=== PATIENT | female | born 1940 | race Caucasian/White ===

== ENCOUNTER 2024-12-11 11:31 | Inpatient (IN) | payer MEDICARE, SELFPAY ==
[2024-12-11] VITALS (15 sets, daily range): BP systolic 143–213; BP diastolic 69–91; PULSE 62–75; RESP 17–30; TEMP 36.4–36.9; O2SAT 93–98; BMI 29.2
--- NOTE | 2024-12-11 12:23 | ED_ITS ---
HPI - Neuro Symptoms/Deficit General Chief Complaint: Neuro Symptoms/Deficit Stated Complaint: Per have friend patient might have had a stroke Time Seen by Provider: 12/11/24 12:13 History of Present Illness HPI Narrative: Patient here with her friends. Has had slurred speech facial droop and vision loss in the past couple of weeks. Patient has history of macular degeneration. She did see her sales assistants and salespersons today in the office, Dr. Reese, in [place], he did dilate her eyes and states her vision loss is not due to macular degeneration. Early this month she was seen at [facility] emergency department. No imaging was done. At that time she started having vision loss and generalized weakness. They are uncertain when she had changes in her speech and left facial droop/lip droop. Denies any headache. No prior history of high blood pressure. No chest pain no palpitations. No history of atrial fibrillation. No prior history of stroke On Anticoagulants: No Related Data Previous Rx's Medication Instructions Recorded aspirin 81 mg tablet,delayed 81 mg PO DAILY #30 tabs 12/14/24 release atorvastatin 20 mg tablet 80 mg (4 x 20 mg) PO BEDTIME #30 12/14/24 tabs losartan 50 mg tablet 100 mg (2 x 50 mg) PO DAILY #30 12/14/24 tabs Allergies Allergy/AdvReac Type Severity Reaction Status Date / Time No Known Drug Allergies Allergy Verified 12/12/24 07:09 Review of Systems Review of Systems Narrative: GENERAL: Negative chills, fatigue, malaise, fever, sweats. HEENT: Negative sinus pain, ear pain, sore throat, positive vision changes RESPIRATORY: Negative dyspnea, cough CARDIOVASCULAR: Negative chest pain, palpitations GASTROINTESTINAL: Negative nausea, vomiting, abdominal pain : Negative dysuria, frequency, hematuria MUSCULOSKELETAL: Negative muscle or bony pain SKIN: Negative rash, skin lesions NEUROLOGIC: Negative headache, positive slurred speech positive facial droop positive weakness, negative numbness ROS Unobtainable: All systems reviewed & are unremarkable except as noted in HPI and below Hematologic/Lymphatic On Anticoagulants: No Patient History Medical History Hypertension Macular degeneration Social History household members: none Smoking Status: Former smoker Exam Narrative Exam Narrative: GENERAL: in no distress, not toxic not dyspneic HEAD: Normocephalic. EYES: Pupils equal round ENT: Mucous membranes moist. NECK: Trachea midline. CARDIOVASCULAR: Regular rate and rhythm RESPIRATORY: Clear to auscultation. Breath sounds equal bilaterally. No wheezes, rales, or rhonchi. GASTROINTESTINAL: Abdomen soft, non-tender EXTREMITIES: No gross deformities. BACK: No flank tenderness. NEURO: AOx4. Slightly slurred speech, there is left lip droop. Strong equal assistant laboratory director negative pronator drift. Elevate each leg equally. No drift. SKIN: Warm and dry PSYCH: Not anxious, is cooperative Initial Vital Signs Initial Vital Signs: Vital Signs Temperature 98.5 F 12/11/24 11:39 Pulse Rate 75 12/11/24 11:39 Respiratory Rate 20 12/11/24 11:39 Blood Pressure 158/76 H 12/11/24 11:39 Pulse Oximetry 95 12/11/24 11:39 Oxygen Delivery Method Room Air 12/11/24 11:39 Scores NIH Stroke Scale Level of Conciousness: Alert, keenly responsive Ask month/age: Answers both questions correctly. Open/close eyes, close hand: Performs both tasks correctly Best gaze horizontal: Normal Visual denny: No visual loss Facial palsy: Minor paralysis, flattened nasolabial fold, asymmetry on smiling Left arm drift: No drift for full 10 sec Right arm drift: No drift for full 10 sec Left leg drift: No drift for full 5 sec Right leg drift: No drift for full 5 sec Limb ataxia: Absent Sensory on face/arms/legs: Normal, no sensory loss Best language: Mild to moderate, slurs some words Dysarthria: Mild to mod,some slurring Extinction or inattention: No abnormality Total NIH Stroke scale score: 3 Course Orders Ordered: Discontinued Medications Aspirin (Aspirin 81 Mg Chew Tab) 324 mg PO NOW ONE Stop: 12/11/24 14:25 Last Admin: 12/11/24 14:45 Dose: 324 mg Documented By: KB Aspirin (Aspirin Ec 81 Mg Tablet) 81 mg PO DAILY [facility] Last Admin: 12/12/24 09:12 Dose: 81 mg Documented By: RW Aspirin (Aspirin Ec 81 Mg Tablet) 81 mg PO DAILY [facility] Last Admin: 12/14/24 09:00 Dose: 81 mg Documented By: Admin: 12/13/24 17:38 Dose: 81 mg Documented By: CÉSAR Atorvastatin Calcium (Atorvastatin 20 Mg Tablet) 80 mg PO BEDTIME [facility] Last Admin: 12/13/24 20:08 Dose: 80 mg Documented By: Admin: 12/12/24 20:46 Dose: 80 mg Documented By: Admin: 12/11/24 21:36 Dose: 80 mg Documented By: AM Clopidogrel Bisulfate (Clopidogrel 75 Mg Tablet) 75 mg PO NOW ONE Stop: 12/11/24 14:25 Last Admin: 12/11/24 14:50 Dose: 75 mg Documented By: ELMIRA Clopidogrel Bisulfate (Clopidogrel 75 Mg Tablet) 75 mg PO DAILY [facility] Last Admin: 12/12/24 09:10 Dose: 75 mg Documented By: AKOSUA Sodium Chloride (Normal Saline 0.9%) 500 mls @ 1,000 mls/hr IV BOLUS ONE Stop: 12/11/24 13:03 Last Infusion: 12/11/24 13:59 Dose: Infused Documented By: ELMIRA(2) Admin: 12/11/24 13:06 Dose: 1,000 mls/hr Documented By: ELMIRA Influenza Virus Vaccine (Influenza Hd Vaccine 0.5 Ml Syringe) 0.5 ml IM .ONCE ONE Stop: 12/12/24 20:01 Last Admin: 12/12/24 23:24 Dose: Not Given Documented By: ALVARADO Influenza Virus Vaccine (Influenza Hd Vaccine 0.5 Ml Syringe) 0.5 ml IM .ONCE ONE Stop: 12/13/24 09:01 Last Admin: 12/13/24 09:03 Dose: 0.5 ml Documented By: CÉSAR Lorazepam (Lorazepam 2 Mg/Ml Inj) 0.5 mg IV Q4HR PRN PRN Reason: Anxiety Last Admin: 12/12/24 09:48 Dose: 0.5 mg Documented By: AKOSUA Losartan Potassium (Losartan 50 Mg Tablet) 100 mg PO NOW ONE Stop: 12/11/24 14:25 Last Admin: 12/11/24 14:45 Dose: 100 mg Documented By: ELMIRA Losartan Potassium (Losartan 50 Mg Tablet) 100 mg PO DAILY [facility] Last Admin: 12/14/24 08:49 Dose: 100 mg Documented By: Admin: 12/13/24 09:03 Dose: 100 mg Documented By: Admin: 12/12/24 09:11 Dose: 100 mg Documented By: AKOSUA Meloxicam (Meloxicam 7.5 Mg Tablet) 7.5 mg PO DAILY PRN PRN Reason: Pain, Mild (1-3) Naloxone HCl (Naloxone 0.4 Mg/Ml Vial) 0.2 mg IV Q2MIN PRN PRN Reason: Opiate Reversal Stored In Pharmacy 0 each PO PRN PRN PRN Reason: . Vital Signs Vital signs: Vital Signs - 8 hr 12/11/24 11:39 12/11/24 11:59 12/11/24 12:00 Temperature 98.5 F Pulse Rate 75 72 Respiratory Rate 20 20 Blood Pressure 158/76 H 179/76 H Pulse Oximetry 95 94 Oxygen Delivery Method Room Air 12/11/24 12:00 12/11/24 12:30 12/11/24 12:30 Temperature Pulse Rate 71 69 Respiratory Rate 23 26 H Blood Pressure 189/85 H Pulse Oximetry 93 95 Oxygen Delivery Method 12/11/24 12:52 12/11/24 12:52 12/11/24 13:00 Temperature Pulse Rate 71 Respiratory Rate 21 Blood Pressure 183/74 H 175/87 H Pulse Oximetry 95 Oxygen Delivery Method 12/11/24 13:00 Temperature Pulse Rate 66 Respiratory Rate 21 Blood Pressure Pulse Oximetry 96 Oxygen Delivery Method MDM - Neuro Symptoms/Deficit Lab Data 12/11/24 12:22 12/11/24 12:22 Labs: Lab Results 12/11/24 Range/Units 12:22 WBC 6.2 (4.5-11.0) X10^3/uL RBC 4.06 (4.0-5.2) X10^6/uL Hgb 12.7 (12.0-16.0) g/dL Hct 36.8 (36-46) % MCV 90.4 (80-100) fL MCH 31.3 (26-34) PG MCHC 34.6 (30-36) % RDW 13.2 (11.6-14.8) % Plt Count 267 (150-400) X10^3/uL Neut % (Auto) 63.2 (50-75) % Lymph % (Auto) 23.8 L (25-40) % [place] % (Auto) 12.4 (3-14) % Eos % (Auto) 0.1 L (2-4) % Baso % (Auto) 0.5 (0-2) % Neut # (Auto) 3900 (4328-2931) /uL Lymph # (Auto) 1500 (6213-0274) /uL [place] # (Auto) 800 (0-900) /uL Eos # (Auto) 0 (0-450) /uL Baso # (Auto) 0 (0-100) /uL PT 13.6 H (9.4-12.5) SECONDS INR 1.2 (0.9-1.3) APTT 35 (25.1-36.5) SECONDS Sodium 138 (137-145) mmol/L Potassium 4.0 (3.4-5.1) mmol/L Chloride 106 (98-107) mmol/L Carbon Dioxide 22 (22-32) mmol/L BUN 23 H (7-17) mg/dL Creatinine 1.05 H (0.52-1.04) mg/dL Estimated GFR 52 L (>60) mL/min BUN/Creatinine Ratio 21.9 (6-22) Glucose 109 (80-110) mg/dL Calcium 9.7 (8.4-10.2) mg/dL Total Bilirubin 1.1 (0.2-1.3) mg/dL AST 38 H (14-36) IU/L ALT 25 (<35) IU/L Alkaline Phosphatase 88 (38-126) U/L Total Protein 7.5 (6.3-8.2) g/dL Albumin 4.3 (3.5-5.0) g/dL Globulin 3.2 (1.7-4.1) g/dL Albumin/Globulin Ratio 1.3 (1.0-2.8) Triglycerides 82 (35-150) mg/dL Cholesterol 204 H (140-199) mg/dL LDL Cholesterol, Calc 147 H (<100) mg/dL HDL Cholesterol 41 (40-60) mg/dL [facility] Narrative Medical decision making narrative: Patient here with her friends. Has had slurred speech facial droop and vision loss in the past couple of weeks. Patient has history of macular degeneration. She did see her sales assistants and salespersons today in the office, Dr. Reese, in [place], he did dilate her eyes and states her vision loss is not due to macular degeneration. Early this month she was seen at [facility] emergency department. No imaging was done. At that time she started having vision loss and generalized weakness. They are uncertain when she had changes in her speech and left facial droop/lip droop. Denies any headache. No prior history of high blood pressure. No chest pain no palpitations. No history of atrial fibrillation. No prior history of stroke After history and exam CBC CMP CT head CT angiogram head and neck normal saline EKG [facility] Medical records reviewed: No recent visit here for this complaint Differential considered: Includes but not limited to TIA stroke aneurysm Sepulveda's palsy Lab Test results independently reviewed as above. Pertinent findings: Independently reviewed EKG sinus rhythm rate [address] elevation or depression Imaging studies independently reviewed: Consultations: 2:25 p.m.. Spoke with hospitalist, Dr. Hay, who will admit patient for stroke. Start aspirin Plavix and losartan Treatments: Aspirin Plavix losartan normal saline Re-evaluations: 2:30 p.m.. Updated patient and friends results av stroke on CT imaging. They do agree for admission for balance workup for stroke Discussion: Appropriate for admission for balance workup for stroke. Needs MRI and echocardiogram. Aspirin Plavix and losartan have been started. Patient outside of the window for any thrombolytics or endovascular studies. Stroke likely occurred earlier this month. Diagnosis: Stroke Discharge Plan Departure Patient Disposition: Admitted as Observation Clinical Impression: Cerebrovascular accident Qualifiers: CVA mechanism: unspecified Qualified Code(s): I63.9 - Cerebral infarction, unspecified Admit Date/Time: 12/11/24 14:24 Admit Provider: Sonia Hay
--- NOTE | 2024-12-11 12:33 | DI.CT.S_ITS ---
PROCEDURE: CT ANGIO HEAD AND NECK INDICATIONS: Slurred speech facial droop TECHNIQUE: After the administration of intravenous contrast, 1 mm thick sections acquired from the aortic arch through the [place] of [place]. 3-dimensional tyvduec-vypeysafw-kkmdriudgg (MIP) and/or volume rendering reformats were acquired of the central intracranial vasculature and neck separately. For radiation dose reduction, the following was used: automated exposure control, adjustment of mA and/or kV according to patient size. COMPARISON: None. FINDINGS: Image quality: Diagnostic. BRAIN: CSF spaces: Ventricles are normal in size and shape. Basal cisterns are patent. No extra-axial fluid collections. Brain: No significant abnormality of the brain can be seen. No area of abnormal intracranial enhancement is seen. Skull and face: Calvarium and facial bones appear intact, without suspicious lesions. Orbits appear normal. Sinuses: Sinuses and mastoids are clear. HEAD CT ANGIOGRAPHY: Anterior circulation: Intracranial internal carotid arteries are normal in size and flow. The flow within the paired anterior cerebral arteries is normal and symmetric. The flow within the middle cerebral arteries is normal and symmetric. The anterior communicating artery is seen. No aneurysms are seen. Posterior circulation: Visualized portions of the vertebral arteries demonstrate normal caliber, and join to form a normal appearing basilar artery. Flow within the posterior cerebral arteries is normal and symmetric. No aneurysms are seen. NECK CT ANGIOGRAPHY: Carotid system: The great vessels demonstrate a conventional anatomy as they arise from the aortic arch. The origins of the common carotid arteries appear patent. The common carotid arteries demonstrate normal caliber and courses. The bifurcation regions are both widely patent. The internal carotid arteries demonstrate normal calibers and courses. Posterior circulation: The origins of the vertebral arteries both appear widely patent. The more superior extracranial portions of both vertebral arteries also demonstrate normal courses and calibers. They join to form a normal appearing basilar artery. Soft tissues: Visualized neck soft tissues demonstrate no suspicious abnormalities. Bones: No suspicious bony lesions. Visualized cervical spine appears normally aligned. IMPRESSION: 1. No significant intracranial arterial abnormality is seen. 2. No significant abnormality is seen within the arteries of the neck. 3. No area of abnormal intracranial enhancement. Any quantitative measurements of stenosis were performed using NASCET criteria. Dictated by: Emanuel Brown M.D. on 12/11/2024 at 13:18 Approved by: Emanuel Brown M.D. on 12/11/2024 at 13:21
--- NOTE | 2024-12-11 12:33 | EKG_ITS ---
[place] [id number] [place] [id number] Test Date: 2024-12-11 Pat Name: Cheli Cook Department: [facility] Room: Gender: Female Director Of Professional Services: NISHANT : 1940 Requested By: Order Number: [id number] Reading MD: Kyle Hay Measurements Intervals [place] Rate: 69 P: 81 IL: 218 QRS: -14 QRSD: 90 T: 0 QT: 404 QTc: 432 Interpretive Statements Sinus rhythm with 1st degree AV block Minimal voltage criteria for LVH, may be normal variant ( R in aVL ) Electronically Signed On 12-11-2024 15:31:28 PST by Kyle Hay
--- NOTE | 2024-12-11 12:33 | DI.CT.S_ITS ---
PROCEDURE: CT HEAD/BRAIN WO CON INDICATIONS: Slurred speech facial droop TECHNIQUE: Noncontrast 4.5 mm thick angled axial sections acquired from the foramen magnum to the vertex, with coronal and sagittal reformats. For radiation dose reduction, the following was used: automated exposure control, adjustment of mA and/or kV according to patient size. COMPARISON: None. FINDINGS: Image quality: Diagnostic. CSF spaces: Basal cisterns are patent. No extra-axial fluid collections. The ventricles are symmetric in size and shape. Brain: No intracranial bleeds or masses. Moderate-sized hypodense area involving right parietal lobe is seen suggestive of age indeterminate infarction. There is cerebral volume loss for age, with resultant ventricular and sulcal prominence. There are periventricular and deep white matter chronic small vessel ischemic changes. There is intracranial internal carotid artery atherosclerosis. Skull and face: Calvarium and visualized facial bones appear intact, without suspicious lesions. Sinuses: Visualized sinuses and mastoids are clear. IMPRESSION: 1. Age indeterminate moderate size right parietal lobe infarction. No acute intracranial bleed. No significant midline shift or mass effect. 2. Age related volume loss and moderate white matter small vessel chronic ischemic changes. Dictated by: Emanuel Brown M.D. on 12/11/2024 at 13:15 Approved by: Emanuel Brown M.D. on 12/11/2024 at 13:17
[2024-12-11 12:46] LABS: Add Manual Diff / Slide Review NO; Basophils Absolute Auto 0 /uL (0-100); Basophils Percent Auto 0.5 % (0-2); Eosinophils Absolute Auto 0 /uL (0-450); Eosinophils Percent Auto 0.1 % (2-4); Hematocrit 36.8 % (36-46); Hemoglobin 12.7 g/dL (12.0-16.0); INR 1.2 (0.9-1.3); Lymphocytes Absolute Auto 1500 /uL (1100-4500); Lymphocytes Percent Auto 23.8 % (25-40); Mean Corpuscular HGB Conc 34.6 % (30-36); Mean Corpuscular Hemoglobin 31.3 PG (26-34); Mean Corpuscular Volume 90.4 fL (80-100); Monocytes Absolute Auto 800 /uL (0-900); Monocytes Percent Auto 12.4 % (3-14); Neutrophils Absolute Auto 3900 /uL (1500-7000); Neutrophils Percent Auto 63.2 % (50-75); Platelet Count 267 X10^3/uL (150-400); Prothrombin Time 13.6 SECONDS (9.4-12.5); Red Blood Cell Count 4.06 X10^6/uL (4.0-5.2); Red Cell Distribution Width 13.2 % (11.6-14.8); White Blood Cell Count 6.2 X10^3/uL (4.5-11.0)
[2024-12-11 12:49] LABS: PTT Partial Thromboplastin Tim 35 SECONDS (25.1-36.5)
[2024-12-11 12:51] LABS: Alanine Aminotransferase 25 IU/L (<35); Albumin 4.3 g/dL (3.5-5.0); Albumin Globulin Ratio 1.3 (1.0-2.8); Alkaline Phosphatase 88 U/L (38-126); Aspartate Aminotransferase 38 IU/L (14-36); BUN Creatinine Ratio 21.9 (6-22); Bilirubin Total 1.1 mg/dL (0.2-1.3); Blood Urea Nitrogen 23 mg/dL (7-17); Calcium 9.7 mg/dL (8.4-10.2); Carbon Dioxide 22 mmol/L (22-32); Chloride 106 mmol/L (98-107); Estimated Glomerular Filt Rate 52 mL/min (>60); Globulin 3.2 g/dL (1.7-4.1); Glucose 109 mg/dL (80-110); HEMOLYSIS < 15 (0-50); Sodium 138 mmol/L (137-145); Total Protein 7.5 g/dL (6.3-8.2)
[2024-12-11] MEDS: SODIUM CHLORIDE 0.9% 500 ML 1000 ML IV (13:06)
--- NOTE | 2024-12-11 13:24 | PC.NURSE ---
Stroke 11/25/2024, left sided weakness, left sided facial droop when smiling. AOx4. Pt has been living at home alone and performing ADLs with assistance from friends. Pt taking food/drink PO without issue.
[2024-12-11] MEDS: ASPIRIN 81 MG CHEW TAB 324 MG PO (14:45)
[2024-12-11] MEDS: LOSARTAN 50 MG TABLET 100 MG PO (14:45)
[2024-12-11] MEDS: CLOPIDOGREL 75 MG TABLET PO (14:50)
--- NOTE | 2024-12-11 17:55 | P.HP_ITS ---
History of Present Illness History of Present Illness Date Patient Seen: 12/11/24 Time Patient Seen: 17:55 Chief complaint: Per have friend patient might have had a stroke Narrative: This is an 84-year-old female with a history of macular degeneration, osteoarthritis and hypertension who presents with a subacute right parietal CVA. She says she has been diffusely weak, having to hold on to furniture to walk in her house, for 1 month. She went to the emergency department in [place] earlier this month and says she had a workup without any imaging and was started on lisinopril 5 mg daily. She has apparently not been treated for hypertension before that? Her PCP had retired and she has not yet established but is planning to see Kay Reese PA-C in December. Her friends noted that she had slurred speech, left arm weakness and drooping of the left face so when her retina specialist saw her today for a planned injection she was referred instead to the ED due to high blood pressure and these changes. On exam her speech is clear and her facial asymmetry is very subtle. Left hand function appears to be normal. Most profound is her left visual field loss to 90? and significant tunnel vision on the right side. She appears to have some left abida-neglect. The CT scan will be followed up with an MRI. She will receive an echocardiogram. She will be started on aspirin and Plavix. The CMP and CBC are normal. [facility] Medical History (Updated 12/11/24 @ 18:03 by Sonia Hay MD) Hypertension Macular degeneration Social History household members: none Smoking Status: Former smoker Meds Home Medications and Allergies Home Medications Medication Instructions Recorded Confirmed Type lisinopril 5 mg tablet 5 mg PO DAILY 12/11/24 12/11/24 History meloxicam 7.5 mg tablet 7.5 mg PO BID 12/11/24 12/11/24 History Review of Systems Review of Systems Narrative: Positive for generalized weakness, visual loss and poor balance. Negative for fevers, chills, sweats, nausea, vomiting, chest pain, abdominal pain, coughing, bleeding, rashes, dysuria, sore throat, headaches, new allergies. Exam Vital Signs (past 8 hours): - 12/11/24 11:39 12/11/24 11:59 12/11/24 12:00 Temperature 98.5 F Pulse Rate 75 72 Respiratory Rate 20 20 Blood Pressure 158/76 H 179/76 H Pulse Oximetry 95 94 Oxygen Delivery Method Room Air 12/11/24 12:00 12/11/24 12:30 12/11/24 12:30 Temperature Pulse Rate 71 69 Respiratory Rate 23 26 H Blood Pressure 189/85 H Pulse Oximetry 93 95 Oxygen Delivery Method 12/11/24 12:52 12/11/24 12:52 12/11/24 13:00 Temperature Pulse Rate 71 Respiratory Rate 21 Blood Pressure 183/74 H 175/87 H Pulse Oximetry 95 Oxygen Delivery Method 12/11/24 13:00 12/11/24 13:30 12/11/24 13:30 Temperature Pulse Rate 66 62 Respiratory Rate 21 24 Blood Pressure 188/79 H Pulse Oximetry 96 97 Oxygen Delivery Method 12/11/24 14:00 12/11/24 14:00 12/11/24 14:30 Temperature Pulse Rate 66 66 Respiratory Rate 17 21 Blood Pressure 198/89 H Pulse Oximetry 98 98 Oxygen Delivery Method 12/11/24 14:45 12/11/24 14:47 12/11/24 14:47 Temperature Pulse Rate 66 68 Respiratory Rate 30 H Blood Pressure 209/91 H 213/88 H Pulse Oximetry 96 Oxygen Delivery Method 12/11/24 14:49 12/11/24 14:49 12/11/24 15:00 Temperature Pulse Rate 67 69 Respiratory Rate 18 22 Blood Pressure 209/91 H Pulse Oximetry 96 96 Oxygen Delivery Method 12/11/24 16:56 Temperature 97.6 F Pulse Rate 73 Respiratory Rate 18 Blood Pressure 192/90 H Pulse Oximetry 98 Oxygen Delivery Method Oxygen Delivery Method Room Air Narrative Exam Narrative: She is alert and oriented x3. No apparent distress. She is unaware of her left-sided neglect. Pupils are equally round and reactive to light and accommodation. Extraocular muscles are intact Sclerae are pink and nonicteric Throat looks normal Tongue is midline Subtle facial asymmetry that is somewhat inconsistent. No lymph nodes are felt head, neck, supraclavicular area There is no thyromegaly JVD is less than 6 cm No carotid bruits are heard Heart is regular rate and rhythm without murmur Lungs are clear to auscultation bilaterally Abdomen is soft, bowel sounds positive, nontender, no organomegaly Extremities have no ankle edema Neuro: Motor function is 4/5 symmetrically in all extremities. Gait and balance are not tested There is no tremor Cranial nerves 2-12 test intact She has significant left-sided abida-neglect. Her left visual field cut is at 90?. Her right visual field cut is at about 45?. There is no dysmetria. Skin has no rash or jaundice Objective Imaging CT scan - head: Radiologist's impression: PROCEDURE: CT HEAD/BRAIN WO CON INDICATIONS: Slurred speech facial droop TECHNIQUE: Noncontrast 4.5 mm thick angled axial sections acquired from the foramen magnum to the vertex, with coronal and sagittal reformats. For radiation dose reduction, the following was used: automated exposure control, adjustment of mA and/or kV according to patient size. COMPARISON: None. FINDINGS: Image quality: Diagnostic. CSF spaces: Basal cisterns are patent. No extra-axial fluid collections. The ventricles are symmetric in size and shape. Brain: No intracranial bleeds or masses. Moderate-sized hypodense area involving right parietal lobe is seen suggestive of age indeterminate infarction. There is cerebral volume loss for age, with resultant ventricular and sulcal prominence. There are periventricular and deep white matter chronic small vessel ischemic changes. There is intracranial internal carotid artery atherosclerosis. Skull and face: Calvarium and visualized facial bones appear intact, without suspicious lesions. Sinuses: Visualized sinuses and mastoids are clear. IMPRESSION: 1. Age indeterminate moderate size right parietal lobe infarction. No acute intracranial bleed. No significant midline shift or mass effect. 2. Age related volume loss and moderate white matter small vessel chronic ischemic changes. Dictated by: Emanuel Brown M.D. on 12/11/2024 at 13:15 Labs 12/11/24 12:22 12/11/24 12:22 Labs: Laboratory Results - last 24 hr 12/11/24 12:22 WBC 6.2 RBC 4.06 Hgb 12.7 Hct 36.8 MCV 90.4 MCH 31.3 MCHC 34.6 RDW 13.2 Plt Count 267 Neut % (Auto) 63.2 Lymph % (Auto) 23.8 L [place] % (Auto) 12.4 Eos % (Auto) 0.1 L Baso % (Auto) 0.5 Neut # (Auto) 3900 Lymph # (Auto) 1500 [place] # (Auto) 800 Eos # (Auto) 0 Baso # (Auto) 0 PT 13.6 H INR 1.2 APTT 35 Sodium 138 Potassium 4.0 Chloride 106 Carbon Dioxide 22 BUN 23 H Creatinine 1.05 H Estimated GFR 52 L BUN/Creatinine Ratio 21.9 Glucose 109 Calcium 9.7 Total Bilirubin 1.1 AST 38 H ALT 25 Alkaline Phosphatase 88 Total Protein 7.5 Albumin 4.3 Globulin 3.2 Albumin/Globulin Ratio 1.3 Assessment & Plan Assessment & Plan narrative: This is an 84-year-old female with a history of macular degeneration, osteoarthritis and hypertension who presents with a subacute right parietal CVA. She says she has been diffusely weak, having to hold on to furniture to walk in her house, for 1 month. Subacute right parietal CVA, present on admission -likely ischemic related to hypertension -check echocardiogram. No carotid disease seen on CTA. -check brain MRI -begin aspirin daily and take Plavix for 21 days. -high-dose statin-Lipitor -losartan for blood pressure control -physical therapy, occupational therapy evaluations and consideration of appropriate rehab occasion. -she is quite functional so could be a candidate for inpatient rehab if she has the endurance to do 3 hours a day of therapy. -the left visual field loss/mild abida-neglect is likely to be a significant rehab barrier for her to overcome. Hypertension -subacute strokes are no need for permissive hypertension -losartan and add as needed. Osteoarthritis -meloxicam as needed. DVT prevention-SCD Time-Based Coding :: [TOTAL MINUTES] spent with patient and on the chart (including review of chart, obtaining history, exam, reviewing outside data, placing orders, documenting exam and treatment plan, and counseling patient) on [DATE].
--- NOTE | 2024-12-11 18:00 | DI.ECHO.S_ITS ---
[place] : : [address] : : [place] : : [id number] : : Phone: [phone] Echocardiogram Report + + :Name: MIGNON GARCIA Study Date: 12/12/2024 Height: 66 in : :[facility] ReadingLocation: Weight: 180 lb : : Gender: Female BSA: 1.9 m2 : :: 1940 Age: 84 yrs BP: 159/72 mmHg: :Reason For Study: CVA : :Ordering Physician: CYRUS, : :CHAVEZ Ervin Performed By: Adia Lopez : :Referring: CHAVEZ BRIDGES : + + Interpretation Summary 1) MIldly increased left ventricular thickness (concentric) with normal size, normal wall motion, and normal systolic function (EF 60-65%). 2) Normal right ventricular size and function. 3) No significant valvular abnormalities. 4) No prior Echo available for comparison. Procedure: A two-dimensional transthoracic echocardiogram with color flow and Doppler was performed. The study quality was technically adequate. There is no prior echocardiogram noted for this patient. The patient was in sinus rhythm with heart rates between 58-67 bpm during the exam. Left Ventricle: The left ventricle is normal in size. There is mild concentric left ventricular hypertrophy. The ejection fraction is estimated to be 60-65%. Left ventricular systolic function appears normal without focal wall motion abnormalities. Diastolic parameters suggest a relaxation abnormality of the left ventricle, consistent with probable normal filling pressures. Right Ventricle: The right ventricle is normal in size and function. Atria: The left atrial size is normal. Right atrial size is normal. There is no Doppler evidence for an interatrial shunt. Mitral Valve: The mitral valve leaflets appear to open well. There is trace mitral regurgitation. Aortic Valve: The aortic valve is not well visualized. The aortic valve is mildly calcified. There is no aortic valve stenosis. No aortic regurgitation is present. Tricuspid Valve: The tricuspid valve leaflets are thin and pliable. There is trace tricuspid regurgitation. Pulmonary artery pressures cannot be estimated because of the lack of a measurable TR jet velocity. Pulmonic Valve: The pulmonic valve is not well seen, but is grossly normal. There is no pulmonic valvular regurgitation. Great Vessels: The aortic root is normal size. The dimensions of the ascending aorta are normal. The IVC is dilated (diameter is greater than 2.1 cm) yet it collapses greater than 50% with a sniff. This suggests a right atrial pressure of 8 mm Hg. Pericardium/ Pleura There is no pericardial effusion. There is no pleural effusion. MMode/2D Measurements & Calculations LVIDd: 4.3 cm LVOT diam: 2.0 cm LVIDs: 2.7 cm Ao root diam: 3.0 cm FS: 37.0 % asc Aorta Diam: 3.2 cm IVSd: 1.2 cm Ao Arch Diam (Prox Trans): 2.8 cm LVPWd: 1.1 cm LV lux. diameter/BSA (cm/m^2): 2.2 LV sys. diameter/BSA (cm/m^2): 1.4 LA A2 area: 18.4 cm2 RA long axis: 4.3 cm LA A4 area: 15.1 cm2 RA area: 9.4 cm2 LA length (vol): 4.6 cm RA vol: 17.5 ml LA vol: 50.7 ml RA : 9.1 ml/m2 LA vol index: 26.5 ml/m2 IVC diam: 2.1 cm RVD1 (basal): 3.6 cm RVD2 (mid): 3.1 cm TAPSE: 1.8 cm Doppler Measurements & Calculations Ao V2 max: 145.2 cm/sec LVOT Max Sunny: 137.7 cm/sec Ao V2 mean: 110.9 cm/sec LV V1 max P.6 mmHg Ao max P.4 mmHg LV V1 VTI: 31.1 cm Ao mean P.2 mmHg GEOVANNA(I,D): 2.8 cm2 Ao V2 VTI: 35.0 cm GEOVANNA(V,D): 3.0 cm2 sev ratio: 0.89 GEOVANNA indexed to BSA (cm^2/m^2): 1.5 MV E max sunny: 82.6 cm/sec PA V2 max: 95.1 cm/sec MV A max sunny: 122.9 cm/sec PA V2 mean: 67.3 cm/sec MV E/A: 0.67 PA mean P.0 mmHg Med Peak E' Sunny: 5.4 cm/sec PA pr(Accel): 41.3 mmHg E/E' med: 15.4 Lat Peak E' Sunny: 5.0 cm/sec E/E' lat: 16.5 E/e' average: 16.0 MV dec time: 0.36 sec SV(LVOT): 97.4 ml Reading Physician:05:20 PM
[2024-12-11] MEDS: ATORVASTATIN 20 MG TABLET 80 MG PO (21:36)
[2024-12-12] VITALS (7 sets, daily range): BP systolic 157–196; BP diastolic 68–96; PULSE 60–77; RESP 15–18; TEMP 36.4–36.7; O2SAT 95–98
--- NOTE | 2024-12-12 07:46 | PM.PN.1 ---
Subjective Subjective Interval history: Admitted with a subacute parietal CVA. S: She still feels out of sorts and has a left-sided field cut. She denies a headache. No nausea. Her arms and legs are moving okay but she does have some apraxia. Exam Vital Signs (past 8 hours): - 12/12/24 00:00 12/12/24 04:00 Temperature 98 F 97.7 F Pulse Rate 60 65 Respiratory Rate 18 18 Blood Pressure 157/70 H 159/72 H Pulse Oximetry 95 96 Oxygen Flow Rate 0 0 Oxygen Delivery Method Room Air Oxygen Flow Rate 0 Narrative Exam Narrative: NAD, alert and oriented. Fluent speech. Lungs are clear, normal rate and effort. Heart is regular, no murmur gallop or rub. Abdomen is soft, non distended. Extremities are free of edema. Objective Imaging MRI - head: Radiologist's impression: 1. Relatively large subacute right MCA distribution infarct. There is dense infarct in the parietal lobe and less dense infarct in the temporal lobe and frontal lobe. There is associated early hemorrhagic transformation. There is mild mass effect without shift. 2. Underlying moderate to severe small vessel ischemic change. Labs 12/11/24 12:22 12/11/24 12:22 Labs: Laboratory Results - last 24 hr 12/11/24 12:22 WBC 6.2 RBC 4.06 Hgb 12.7 Hct 36.8 MCV 90.4 MCH 31.3 MCHC 34.6 RDW 13.2 Plt Count 267 Neut % (Auto) 63.2 Lymph % (Auto) 23.8 L [place] % (Auto) 12.4 Eos % (Auto) 0.1 L Baso % (Auto) 0.5 Neut # (Auto) 3900 Lymph # (Auto) 1500 [place] # (Auto) 800 Eos # (Auto) 0 Baso # (Auto) 0 PT 13.6 H INR 1.2 APTT 35 Sodium 138 Potassium 4.0 Chloride 106 Carbon Dioxide 22 BUN 23 H Creatinine 1.05 H Estimated GFR 52 L BUN/Creatinine Ratio 21.9 Glucose 109 Calcium 9.7 Total Bilirubin 1.1 AST 38 H ALT 25 Alkaline Phosphatase 88 Total Protein 7.5 Albumin 4.3 Globulin 3.2 Albumin/Globulin Ratio 1.3 PFSH Medical History Hypertension Macular degeneration Social History household members: none Smoking Status: Former smoker Assessment & Plan Assessment & Plan narrative: This is an 84-year-old female with a history of macular degeneration, osteoarthritis and hypertension who presents with a subacute right parietal CVA. She says she has been diffusely weak, having to hold on to furniture to walk in her house, for 1 month. 1. Subacute right parietal CVA, present on admission and active. -likely ischemic related to hypertension -check echocardiogram. No carotid disease seen on CTA. -check brain MRI -begin aspirin daily and take Plavix for 21 days. -high-dose statin-Lipitor -losartan for blood pressure control -physical therapy, occupational therapy evaluations and consideration of appropriate rehab occasion. -she is quite functional so could be a candidate for inpatient rehab if she has the endurance to do 3 hours a day of therapy. -the left visual field loss/mild abida-neglect is likely to be a significant rehab barrier for her to overcome. 2. Hypertension, present on admission and active. -subacute strokes are no need for permissive hypertension -losartan and add as needed. 3. Osteoarthritis, stable. Plan: -continue current therapy. -we will repeat CT scan on December 13 to reassess for evidence of bleeding or increased edema. -continue slow improvements of blood pressure control. -ongoing evaluations by PT and OT for discharge planning recommendations. DVT prevention-SCD Time-Based Coding :: [TOTAL MINUTES] spent with patient and on the chart (including review of chart, obtaining history, exam, reviewing outside data, placing orders, documenting exam and treatment plan, and counseling patient) on [DATE].
[2024-12-12] MEDS: CLOPIDOGREL 75 MG TABLET PO (09:10)
[2024-12-12] MEDS: LOSARTAN 50 MG TABLET 100 MG PO (09:11)
[2024-12-12] MEDS: ASPIRIN EC 81 MG TABLET PO (09:12)
--- NOTE | 2024-12-12 09:40 | PT-IP ANOTE ---
PT consult received. PT reviews chart and checks in on pt. Pt is tearful and reports worry about being in MRI machine. She expresses concern about her dog and not being able to take care of herself. PT provides encouragement about hospital plan and therapy consults and assisting with disposition plan and pt reports feeling better. PT speaks with nsg who is looking into possible medication for pt to help with tolerating MRI. Con't eval efforts later.
[2024-12-12] MEDS: LORazepam 2 MG/ML INJ 0.5 MG IV (09:48)
--- NOTE | 2024-12-12 11:48 | OT.IP.EVAL ---
Current Diagnoses Cerebral infarction, unspecified (12/11/24) Past Medical History (Last Reviewed 12/12/24 @ 07:47 by Morgan Palmer MD) Hypertension Macular degeneration Occupational Therapy Inpatient Evaluation/Re-Eval M1 PT/OT-IP Prior Functional Status Start: 12/12/24 08:10 Freq: NEEDED Status: Active Protocol: Document 12/12/24 12:53 [facility] (Rec: 12/12/24 13:12 [facility] [id number]) Medical Review Prior Functional Status Medical History Reviewed Yes Diet/Fluid Consistency Regular Communication Attempts to communicate all needs and pt is anxious and tearful this a.m. Mobility and Gait Pt reports 2 falls in the past 14-15 months and pt reports she has used cane, 3WRW and no AD Activities of Daily Living and IADL's Pt reports I and does not drive and has friends who assist with shopping and errands. She does state that she had a friend visiting when she was showering and had a fall and friend called EMS. Unsure if she typically has friends nearby when she showers or not. Pt has a dog that she cares for. Social History Household Members none Living Arrangements Mobile home Number of Floors (Floors) One Floor Number of Stairs To Enter/Railing? 3 steps and B rails to enter Home Environment High Toilet,Walk in Shower Home Equipment Quad Cane,Straight Cane,Grab Bars In Shower Employment Status Retired Additional Social History Comment Small outdoor table in shower to sit on, 3WRW M2 OT-IP Current Condition Start: 12/12/24 12:53 Freq: Status: Active Protocol: Document 12/12/24 12:53 [facility] (Rec: 12/12/24 13:12 [facility] [id number]) Occupational Therapy Current Condition Current Condition Evaluation Date 12/12/24 Treatment Diagnosis Large subacute R CVA Diagnosis Onset Date 12/11/24 M3 OT- IP Subjective and Pain Start: 12/12/24 12:53 Freq: Status: Active Protocol: Document 12/12/24 12:53 [facility] (Rec: 12/12/24 13:12 [facility] [id number]) OT- Subjective Occupational Therapy Visit Type Type Initial Evaluation Visit Start Time 11:05 Visit Stop Time 11:48 Occupational Therapy Visit Comments Patient Comments Pt agreed to get up. Patient/Caregiver Goals TO get better. OT Pain Assessment Pain When Pain Assessed At Rest Pain Present Pain Present Denied Pain M4 OT- IP ADL's Start: 12/12/24 12:53 Freq: Status: Active Protocol: Document 12/12/24 12:53 [facility] (Rec: 12/12/24 13:12 [facility] [id number]) OT [id number]-Zijf-Buyrxdw General Evaluation Self-Feeding Ability Moderate Assistance Comments OT Self-Feeding Comments Assist for set-up , cues to look left, and to clear her mouth as pt has left pocketing . Pt able to clear her mouth with her tongue and finger at times. OT ADL-Grooming Comments OT Grooming Comments Not performed. OT ADL-Oral Care Comments Oral Care Comments Not performed. OT ADL-Dressing General Eval Lower Body Dressing Ability Maximum Assistance Areas Needing Assistance Underpants/Brief,Socks Comments OT Dressing Comments Pt ataxic with LUE, decreased proprio and kinesthesia and needing assist to guide her left hand for dressing and toileting needs. OT ADL-Toileting General Evaluation Toileting Ability Moderate Assistance Areas Needing Assistance Manage Clothing Comments OT Toileting Comments Pt needing assist to guide her left hand in order be able to pull up her brief on the left side. OT ADL-Bathing Comments OT Bathing Comments Pt will need assist. M5 OT- IP IADL's Start: 12/12/24 12:53 Freq: Status: Active Protocol: Document 12/12/24 12:53 [facility] (Rec: 12/12/24 13:12 [facility] [id number]) OT-Instrumental Activities of Daily Living Home Safety Awareness Awareness of Need for Assistance at Home Good Awareness Home Safety Comments Pt is aware that she will not be able to care for her self at this time. Medication Management Medication Management Comments Prior pt able to do but may benefit from assist due to decreased vision from CVA and macular deg. Money Management Money Management Comments Prior pt able to do but may benefit from assist due to decreased vision from CVA and macular deg. Meal Preparation Meal Preparation Comments Prior pt able to do but may benefit from assist due to decreased vision from CVA and macular deg. Race Starter Race Starter Comments Prior pt able to do but may benefit from assist due to decreased vision from CVA and macular deg. Driving Driving Comments Pt aware that she will not be able to drive. M6 OT- IP Functional Cognition Start: 12/12/24 12:53 Freq: Status: Active Protocol: Document 12/12/24 12:53 [facility] (Rec: 12/12/24 13:12 [facility] [id number]) Cognitive Factors Limiting Selfcare Function Cognitive Ability Level of Alertness Alert Patient Orientation Name,Age,Birthday,Month,Date, Year,Day of Week,Place, Situation Attention Span Ability Capable of Focused Attention, Capable of Sustained Attention Ability to Follow Commands Able to Follow One Step Commands Cognitive Comments Cognitive Assessment Comments Pt able to follow commands, however needing cues for safety due to visual impairments on the left, neglect and for FWW use. Pt O x4 and motivated to get better. Pt would benefit from SLUMS. OT- Vision and Hearing OT- Vision Assessment Vision History Macular Degeneration Visual Acuity Glasses For Reading Visual Attentiveness WFL Occular Pursuits Impaired Horizontal Visual Richardson Impaired Visual Spacial Neglect Left Vision Assessment Comments Left eye decreased peripherally.Pt educated to turn her head to ashley left to be able to see. Pt eating food on the right side of the plate and needing assist to turn the plate to see and cues to turn her head so able to find the food on the left. M7 OT- IP Mobility and Balance Start: 12/12/24 12:53 Freq: Status: Active Protocol: Document 12/12/24 12:53 [facility] (Rec: 12/12/24 13:12 [facility] [id number]) OT-Transfer Assessment Sit to and From Stand Sit to and from Stand Minimal Assistance Transfers Transfer Ability Moderate Assistance Technique Transfer Destination Chair,Toilet Transfer Technique Stand Step Pivot Devices Transfer Assistive Devices Gait Belt,Front Wheeled Walker Comments Mobility Comments ALEXANDR to stand and assist to help place the left hand on the FWW. MODA for transfer assist with FWW guidance, safety cues due to decreased vision. OT- Balance Assessment Sitting Balance and Reactions Static Sitting Balance Ability Good Dynamic Sitting Balance Ability Fair Standing Balance and Reactions Static Standing Balance Ability Fair Dynamic Standing Balance Ability Fair M8 OT- IP Objective Assessments Start: 12/12/24 12:53 Freq: Status: Active Protocol: Document 12/12/24 12:53 [facility] (Rec: 12/12/24 13:12 [facility] [id number]) OT Gross Range of Motion Upper Extremity Range of Motion Assessment Within Functional Limits OT Strength Upper Extremity Strength Assessment Left Impaired Wrist 4- Hand 4- OT- Coordination Assessment Upper Extremity Finger to Nose Test Left UE Impaired Finger Tapping Test Left UE Impaired OT Sensation Assessment Comments Summary Comments Decreased for proprioception and kinesthesia. Pt ataxia with left arm and neglect as well. M9 OT- IP Assessment and Plan Start: 12/12/24 12:53 Freq: Status: Active Protocol: Document 12/12/24 12:53 [facility] (Rec: 12/12/24 13:12 [facility] [id number]) OT Summary Assessment and Plan Potential Rehabilitation Potential Good Analytic Complexity at Evaluation Moderate Summary OT Impairments Range of Motion,Strength, Balance,Coordination,Sensation ,Functional Mobility,Self- Feeding,Grooming,Dressing, Toileting,Bathing,Toilet Transfers,Shower Transfers, Activity Tolerance Progress Towards Goals Progressing Toward Goals,Slow Progress due to Medical Issues Assessment Summary Pt MOD complexity and main barriers are decreased vision on the left. Also having pocketing with food on the left but after cues aware to clear it out with her tongue or finger. Pt is very motivated to get better. Pt would benefit from acute rehab. Goals Self-Feeding Goal Independent Grooming Goal Independent Dressing Goal Independent Toileting Goal Independent Bathing Goal Standby Assistance Toilet Transfer Goal Independent Shower Transfer Goal Independent Days to Meet Goals 30 Frequency of Treatment Other frequency 5x/week Treatment Plan OT Treatment Plan ADL Training,Functional Mobility,Neuromuscular Re- education,Vision Retraining, Patient/Family Education, Discharge Planning Discharge Recommendations OT Discharge Recommendations Acute Rehab,SNF vs Acute Rehab Transportation Needs at Discharge Private Vehicle,Wheelchair/ Cabulance
--- NOTE | 2024-12-12 12:46 | PT.IIE ---
Current Diagnoses Cerebral infarction, unspecified (12/11/24) Medical History (Last Reviewed 12/12/24 @ 07:47 by Morgan Palmer MD) Hypertension Macular degeneration Physical Therapy Inpatient Evaluation/Re-Eval M1 PT/OT-IP Prior Functional Status Start: 12/12/24 08:10 Freq: NEEDED Status: Active Protocol: Document 12/12/24 11:01 [facility] (Rec: 12/12/24 12:46 [facility] [id number]) Medical Review Prior Functional Status Medical History Reviewed Yes Diet/Fluid Consistency Regular Communication Attempts to communicate all needs and pt is anxious and tearful this a.m. Mobility and Gait Pt reports 2 falls in the past 14-15 months and pt reports she has used cane, 3WRW and no AD Activities of Daily Living and IADL's Pt reports I and does not drive and has friends who assist with shopping and errands. She does state that she had a friend visiting when she was showering and had a fall and friend called EMS. Unsure if she typically has friends nearby when she showers or not Social History Household Members none Living Arrangements Mobile home Number of Floors (Floors) One Floor Number of Stairs To Enter/Railing? 3 steps and B rails to enter Home Environment High Toilet,Walk in Shower Home Equipment Quad Cane,Straight Cane,Grab Bars In Shower Employment Status Retired Additional Social History Comment Small outdoor table in shower to sit on, 3WRW M2 PT-IP Current Condition Start: 12/12/24 08:10 Freq: NEEDED Status: Active Protocol: Document 12/12/24 11:01 [facility] (Rec: 12/12/24 12:46 [facility] [id number]) Physical Therapy Current Condition Current Condition Evaluation Date 12/12/24 Treatment Diagnosis Large subacute R MCA infarct with some hemorrhagic extension M3 PT-IP Subjective Start: 12/12/24 08:10 Freq: NEEDED Status: Active Protocol: Document 12/12/24 11:01 [facility] (Rec: 12/12/24 12:46 [facility] [id number]) Subjective Physical Therapy Visit Type Type Initial Evaluation Visit Start Time 11:01 Visit Stop Time 11:37 Number of SCRAP DEALER Visits 0 Physical Therapy Visit Comments Patient Comments Pt is tearful and anxious this a.m. about stroke, concern about inability to care for herself and her dog. She was able to manage in the MRI machine. M4 PT-IP Mobility and Gait Start: 12/12/24 08:10 Freq: NEEDED Status: Active Protocol: Document 12/12/24 11:01 [facility] (Rec: 12/12/24 12:46 [facility] [id number]) PT-Transfer Assessment Sit to and From Stand Sit to and from Stand Minimal Assistance Equipment Transfer Assistive Device Gait Belt,Front Wheeled Walker Orthotic/Prosthetic Devices or Brace: No Transfers Transfer Destination Chair,Toilet Transfer Technique Ambulation Transfer Ability Level of Assist Minimal Assistance,1 Person Assistance,Use of Upper Extremities Comments Mobility Comments Pt with left sided inattentiveness and visual issues: runs into doorway on the left, step-to with left foot lag, trouble coordinating stepping, not eating food on the left side of her plate and trouble using left hand Gait Assessment Gait Gait Assistance Required: Moderate Assistance Distance (Feet) 10 Able to Maintain Weight Bearing Status Yes During Gait Assistive Devices Assistive Device Gait Belt,Front Wheeled Walker Orthotic/Prosthetic Devices or Brace: No Gait Deviations General Gait Pattern Decreased Stride Length, Decreased Feet Clearance, Flexed Trunk,Step-to Gait,Wide Based Gait Factors Limiting Gait Function Factors Limiting Gait Function Decreased Strength,Difficulty Following Directions, Incoordination,Poor Balance, Poor Safety Awareness Comments Gait Comments Visual field changes/low vision, especially to the left and left eye tests positive for scew deviation, trouble with other visual tests in setting of macular changes at baseline, has trouble following commands PT-Balance Assessment Sitting Balance and Reactions Static Sitting Balance Ability Good Dynamic Sitting Balance Ability Fair Standing Balance and Reactions Static Standing Balance Ability Fair Dynamic Standing Balance Ability Fair Device Used RW M5 PT-IP Objective Assessments Start: 12/12/24 08:10 Freq: NEEDED Status: Active Protocol: Document 12/12/24 11:01 [facility] (Rec: 12/12/24 12:46 [facility] [id number]) Orientation Orientation/Cognition Level of Alertness Alert Orientation Name,Birthday,Date,Place, Situation Safety Awareness Decreased Safety Awareness Memory Description No Deficits Noted Gross Range of Motion Upper Extremity ROM Impairments Defer to OT Lower Extremity ROM Assessment Left Impaired Impairments No great toe extension on the left and decrease ankle DF compared to right Strength Lower Extremity Strength Assessment Bilaterally Impaired Hip Hip flexion right 4/5; left 3/ 5 Knee Knee flexion right 4+/5, left 3+/5; extension right 4+/5, left 3+/5 Ankle DF right 4+/5, left 4/5, great toe ext right 4/5, left 0/5 Coordination Assessment Gross Coordination Gross Coordination Impaired Assessment Heel on Franco Test R min impaired, left mod impaired Sensation Assessment Comments Sensation Comments Trouble following sensory commands B and does appear worse on the left M6 PT-IP Treatment Start: 12/12/24 08:10 Freq: NEEDED Status: Active Protocol: Document 12/12/24 11:01 [facility] (Rec: 12/12/24 12:46 [facility] [id number]) Physical Therapy Treatment Education Education Provided Safety Other Treatments Other Treatment Performed Cues and assistance needed for all transfers and ADL in bathroom today, assistance with positioning briefs, hygiene and poor awareness and use of left hand and ability to negociate task on the left including walker use, raising and lowering hand and awareness of where it is on walker M7 PT-IP Assessment and Plan Start: 12/12/24 08:10 Freq: NEEDED Status: Active Protocol: Document 12/12/24 11:01 [facility] (Rec: 12/12/24 12:46 [facility] [id number]) PT Summary Assessment and Plan Potential Rehabilitation Potential Good Status of Condition at Evaluation Evolving Summary Impairments ROM,Strength,Balance, Coordination,Sensation, Cognition,Bed Mobility, Transfers,Gait,Activity Tolerance Progress Towards Goals Progressing Toward Goals Assessment Summary Pt is an 84 y/o female who reports she was I in her mobile home in [facility] and that she needed increased assistance recently and had a fall in the past week--it is unclear when the infarct occurred as it is subacute and she did go to outside hospital before adm to this hospital last date. Her friends assist with errands as she does not drive given history of macular degeneration and she has a small dog for whom she cares. Pt dx with large subacute MCA infarct with early hemorrhagic extension. Pt presents with visual challenges, worse to the left, poor use of left hand, running into objects to the left, not eating foot on left side of plate. Pt is concerned about her loss of independence and dog. Currently recommend acute rehab at d/c. Goals Bed Mobility Goal Independent Transfer Goal Standby Assistance,Four Wheeled Walker Gait Goal Standby Assistance,Four Wheel Walker Gait Distance 75 Other Goals Pt will ascend and descend 3 steps with 2 rails and no more than CGA to allow safe home entrance. Days to Meet Goals 10 Frequency of Treatment Frequency Of Treatment Once a Day Treatment Plan Physical Therapy Treatment Plan Bed Mobility Training,Transfer Training,Gait Training, Therapeutic Exercise,Balance Retraining,Discharge Planning, Hot or Cold Pack,Neuromuscular Re-ed,Coordination Retraining ,Manual Therapy Precautions Other Precautions Fall risk, poor vision and low attention to left side Recommendations To Nursing Amount of Assist Needed 2 Person Assist Discharge Recommendations PT Discharge Recommendations Acute Rehab Transportation Needs at Discharge Wheelchair/Cabulance
--- NOTE | 2024-12-12 15:54 | CM.DANOTE ---
Initial DCP Assessment Note Pt is a 84yo female, resident of [place], admitted after CVA- current rec from PT/OT/CEMENT FINISHING SUPERVISOR: Inpatient Rehab. Referral sent [facility] today by ALYCE Johnson. PCP: Unknown Payer: RUBÉN/GIANNI Reviewed chart. Met w/patient's friend and stiff straw hat washer outside of patient's room, with patient's permission. Patient getting an eval from CEMENT FINISHING SUPERVISOR. According to our conversation: Patient has no designated DPOA. Patient and daughter talk sporadically. Patient lives in a trailer, alone with dog Jase. Patient is mostly indp at baseline, has some mild cognitive impairment. Patient has macular degeneration according to friend which worries patient's friends re medication management. Friends visit regularly and suspected patient had a stroke days ago. Patient went to [facility] ER and was sent to Friend/stiff straw hat washer is a retired housing case management social worker and plans to see if she can help patient into [facility] program for in home care. Patient does not drive. Patient with slower processing, unsure if this is baseline or related to her stroke. Patient/supportive friends at bedside agreeable to initial referral to [facility]. CM team following closely for continued coordination efforts. ARIAN Potter Discharge Planning/Care Management CM Discharge Assessment Start: 12/12/24 15:51 Freq: Status: Active Protocol: Document 12/12/24 15:51 LAZARO (Rec: 12/12/24 15:54 LAZARO [id number]) Discharge Planning Assessment Assigned Presser [employer] ARIAN Kunz DPOA/Assigned Designee Name josee Thomson Contact Information [phone] Advance Directives? No History Provided By Friend,Medical Record Prior Living Arrangements Mobile home Comment mobile home park Household Members none Type of transporation used prior to Relies on Others admit Independent with ADL's Yes Is patient alert and oriented? No: Mild confusion per friend/ stiff straw hat washer Caregiver for Another Yes: Dog Jase Barriers to Discharge Yes Comment Below functional baseline. IPR Discharge Plan Inpatient Rehab Unit Transportation Arrangement Private auto vs cabulance Referrals Initiated Other Additional Comment IPR- [facility]
--- NOTE | 2024-12-12 16:10 | ST.IPIE ---
Visit Care Team Role Provider Type Chris Kirkland MD Emergency Provider Physician Referring Provider Specialty: Emergency Medicine Address: [address] [place] [address], [id number] Email: [email or web address] Admit Provider Physician Attending Provider Specialty: Medical Address: [address] [place] [address], [phone] Email: [email or web address] Current Diagnoses Cerebral infarction, unspecified (12/11/24) Past Medical History (Last Reviewed 12/12/24 @ 07:47 by Morgan Palmer MD) Hypertension (Medical) Macular degeneration (Medical) ST IP Initial Evaluation Report BREAST SURGEON Adult Cognitive Linguistic Eval Start: 12/12/24 15:48 Freq: Status: Active Protocol: Document 12/12/24 15:48 SS (Rec: 12/12/24 16:10 SS [id number]) Adult Cognitive Linguistic Evaluation Session Time Visit Start Time 13:25 Visit Stop Time 13:55 Total Visit Minutes 30 Visit Information Visit Number [address] Morgan Palmer Reason for Referral CVA Setting Assessment Location Acute Care Visit Type Note Type Initial evaluation Next Note Type Next Note Type Treatment Note Patient Information Identification Type Name,Date of Patient History Per H&P: This is an 84-year- old female with a history of macular degeneration, osteoarthritis and hypertension who presents with a subacute right parietal CVA . She says she has been diffusely weak, having to hold on to furniture to walk in her house, for 1 month. She went to the emergency department in [place] earlier this month and says she had a workup without any imaging and was started on lisinopril 5 mg daily. She has apparently not been treated for hypertension before that? Her PCP had retired and she has not yet established but is planning to see Kay Reese PA-C in December. Her friends noted that she had slurred speech, left arm weakness and drooping of the left face so when her retina specialist saw her today for a planned injection she was referred instead to the ED due to high blood pressure and these changes. On exam her speech is clear and her facial asymmetry is very subtle. Left hand function appears to be normal. Most profound is her left visual field loss to 90? and significant tunnel vision on the right side. She appears to have some left abida-neglect . The CT scan will be followed up with an MRI. She will receive an echocardiogram . She will be started on aspirin and Plavix. The CMP and CBC are normal. MRI on showed a large subacute right MCA distribution infarct, dense infarct in the parietal lobe and less dense infarct in the temporal lobe and frontal lobe, as well as underlying moderate to severe small vessel ischemic change. Pt was seen for cognitive- communication evaluation to assess current function. Occupation Status Retired Hearing Hearing Level Normal Vision Vision Status Impaired Comments Macular degeneration, new onset of left neglect Previous Therapy Previous Speech-Language Therapy No Subjective Patient Report Pt alert and oriented upon BREAST SURGEON arrival. Per pt, she previously lived alone, with occasional assistance from friends with ADLs and IADLs, though was mostly independent. She reports she has been having some difficulty completing ADLs and IADLs more recently, though attributes this to physical weakness and history of macular degeneration. She reports she has noted difficulty with word -finding and short-term memory s/p CVA. She does not seem to recognize the left neglect which reportedly significantly affects her safety and participation in ADLs (e.g., bumps into objects on the left side, leaves the left side of her place full of food, etc). No overt s/sx of dysphagia, aphasia, or dysarthria, which is consistent with pt and RN report. Mental Status Alert,Responsive,Cooperative Informal Assessment Receptive Language Normal Yes Expressive Language Normal Yes Pragmatic Language Normal Yes Speech Normal Yes Cognition Normal No Cognitive Impairment(s) Attention,Short-term memory, Executive functioning Formal Assessment Standardized Test/Screener Type [facility] Mental Status (UMS) Administration Complete Results The [facility] Mental Status (UMS) Examination was used to obtain information regarding the patient?s cognitive abilities. The SLUMS consists of ten questions that assess delayed recall, verbal fluency, comprehension, calculations, attention, working memory, and orientation. A scored is calculated from a possible 30 points. Scores fall in one of three ranges describing a patient?s level of impairment based upon level of education. Patients who have completed high school are expected to score slightly higher on this test than those who have not. For someone with a high school education, WNL is 27-30. The SLUMS was completed on this date. Subtest scores are as follows: Orientation: 3/3 Immediate Recall: 5/5 (not calculated in total score) Numeric Calculation: 1/3 Divergent Namin/3 (total of 12) Delayed Recall: 1/5 Attention/Registration with Digit Span: 2/2 Clock Drawing (Visuospatial & Executive Functioning): 0/4 ( impacted by left neglect. Pt placed numbers 1-6 twice on the right side of the clock face. She did not place the hands at all which is consistent with her left neglect) Geometric Figures: 2/2 Short Story (memory/recall): Pt received a score of 19/30 which is indicative of mild cognitive-communication impairment. Findings/Results Language Function Mildly impaired Cognitive Function Mild-moderately impaired Findings The pt demonstrates mild- moderate cognitive- communication impairment in the areas of attention, short- term memory, word-finding, and executive functioning. She also presents with visual left neglect. Pt is at an elevated risk of making critical errors with tasks such as medication management, time/ schedule management, financial operations analyst, and completion of rn oncology clinical, as well as everyday tasks that require adequate skills in the areas of attention and immediate/ delayed memory. Additionally, visual left neglect is likely to impact her ability to safely and accurately complete ADLs and IADLs. Skilled ST services with the goal of providing therapeutic education and training in the use of cognitive-communication compensatory strategies targeting attention, immediate and delayed memory, and visual left neglect for improved safety and independence at the next level of care are recommended. BREAST SURGEON educated pt on ST POC for improving cognitive- communication skills. Pt expressed comprehension of and is agreeable with proposed ST POC. Concomitant Factors Concomitant Factors Visual field neglect Prognosis Prognosis Good Based on Cognitive status,Family support,Duration of symptoms/ severity,Time since onset Plan of Care Speech-Language Treatment Yes Frequency Once a day Patient/Caregiver Education Patient expressed understanding of evaluation, Patient expressed agreement with goals and treatment plans Short Term Goals 1. Patient will utilize compensatory memory aids with 90% accuracy given verbal and visual cues to increase functional recall/ participation within current setting. 2. Patient will demonstrate an understanding of 2-3 techniques targeting visual left neglect through verbal teach-back/demonstration in a treatment session. Chcf Goals Patient will increase cognitive-communication skills to within functional limits using compensatory strategies as trained in order to facilitate safe return to prior level of living. Discharge Recommendations Inpatient rehab facility
--- NOTE | 2024-12-12 18:01 | DI.MRI.S_ITS ---
PROCEDURE: MR HEAD/BRAIN WO CON INDICATIONS: CVA TECHNIQUE: Non-contrast axial T1 spin echo, axial T2 fast spin echo, sagittal and axial FLAIR, coronal T2 fast spin echo, axial gradient echo, axial diffusion and ADC through the brain. COMPARISON: [facility], CT, CT ANGIO HEAD AND NECK, 12/11/2024, 12:40. [facility], CT, CT HEAD/BRAIN WO CON, 12/11/2024, 12:40. FINDINGS: Image quality: Excellent. CSF spaces: Ventricles appear symmetric in size and shape. Basal cisterns are patent. No extra-axial fluid collections. Brain: No intracranial bleeds or mass effects. There is cerebral volume loss for age. There is underlying bilateral moderate to severe small vessel ischemic change. There is a dense area subacute infarct involving the right parietal lobe, involving the deep white matter and cortex with cytotoxic edema and sulcal effacement. There is mild mass effect on the posterior horn the right lateral ventricle. More anteriorly, there is less dense infarct involving the right temporal lobe as well as predominantly cortical infarct involving the posterior and mid right frontal lobe. Findings are consistent with a relatively large area right MCA distribution infarct. Reference previous CT image 23 of series 4 and diffuse in weighted axial images 12, 15, and 18 as medical detail representative images. There is early petechial hemorrhagic transformation noted with intracellular and extracellular methemoglobin present. Reference axial T1 image 12 of series 8 for evidence of petechial hemorrhage. Normal intravascular flow voids are present. Skull and face: Calvarial bone marrow is normal in signal. Orbits are normal. Sinuses: Sinuses and mastoids are clear. IMPRESSION: 1. Relatively large subacute right MCA distribution infarct. There is dense infarct in the parietal lobe and less dense infarct in the temporal lobe and frontal lobe. There is associated early hemorrhagic transformation. There is mild mass effect without shift. 2. Underlying moderate to severe small vessel ischemic change. Dictated by: Agustin Bass M.D. on 12/12/2024 at 11:14 Approved by: Agustin Bass M.D. on 12/12/2024 at 11:26
[2024-12-12] MEDS: ATORVASTATIN 20 MG TABLET 80 MG PO (20:46)
[2024-12-13] VITALS (7 sets, daily range): BP systolic 147–184; BP diastolic 67–86; PULSE 61–69; RESP 15–20; TEMP 36.4–36.9; O2SAT 95–97
--- NOTE | 2024-12-13 07:46 | P.PN_ITS ---
Subjective Subjective Interval history: Summary: Admitted with a subacute parietal CVA. S: She feels about the same today, no headache. She has no change in her vision with a static left field cut. This is a left complete hemianopsia. She also has some apraxia of her left arm. [facility] her home and her 2 friends. They can likely take her on December 14. Exam Vital Signs (past 8 hours): - 12/13/24 00:00 12/13/24 04:00 Temperature 97.5 F L 97.7 F Pulse Rate 65 61 Respiratory Rate 18 15 Blood Pressure 174/67 H 147/84 H Pulse Oximetry 97 97 Oxygen Delivery Method Room Air Oxygen Flow Rate 0 Narrative Exam Narrative: NAD, alert and oriented. Fluent speech. Lungs are clear, normal rate and effort. Heart is regular, no murmur gallop or rub. Abdomen is soft, non distended. Extremities are free of edema. Left hemianopsia. Objective Imaging MRI - head: Radiologist's impression: 1. Relatively large subacute right MCA distribution infarct. There is dense infarct in the parietal lobe and less dense infarct in the temporal lobe and frontal lobe. There is associated early hemorrhagic transformation. There is mild mass effect without shift. 2. Underlying moderate to severe small vessel ischemic change. Repeat head CT:: Radiologist's impression: Right MCA territory infarction again seen. There is minimal hyperdensity along the margins of this stroke, which are consistent with early petechial hemorrhage. Labs 12/11/24 12:22 12/11/24 12:22 [facility] Medical History Hypertension Macular degeneration Social History household members: none Smoking Status: Former smoker Assessment & Plan Assessment & Plan narrative: 1. Subacute right parietal CVA, present on admission and active. -hold dual antiplatelet therapy on December 12 due to MRI read. CT today appears to be relatively stable, we will restart aspirin monotherapy and continue atorvastatin. We will hold Plavix given the large volume stroke bed with some evidence of petechial bleeding. 2. Hypertension, present on admission and active. -subacute strokes are no need for permissive hypertension -losartan and add as needed. 3. Osteoarthritis, stable. Plan: -Held DAPT 12/12, restart ASA monotherapy today + statin. -repeat CT brain today (monitor possible hemorrhagic transformation). Stable. -continue slow improvements of blood pressure control. -ongoing evaluations by PT and OT for discharge planning recommendations. BHUMI: 12/14, [facility] on Monday. DVT prevention-SCD Time-Based Coding :: [TOTAL MINUTES] spent with patient and on the chart (including review of chart, obtaining history, exam, reviewing outside data, placing orders, documenting exam and treatment plan, and counseling patient) on [DATE].
[2024-12-13] MEDS: INFLUENZA HD VACCINE 0.5 ML SYRINGE IM (09:03)
[2024-12-13] MEDS: LOSARTAN 50 MG TABLET 100 MG PO (09:03)
--- NOTE | 2024-12-13 10:47 | DI.CT.S_ITS ---
PROCEDURE: CT HEAD/BRAIN WO CON INDICATIONS: stroke TECHNIQUE: Noncontrast 4.5 mm thick angled axial sections acquired from the foramen magnum to the vertex, with coronal and sagittal reformats. For radiation dose reduction, the following was used: automated exposure control, adjustment of mA and/or kV according to patient size. COMPARISON: [facility], MR, MR HEAD/BRAIN WO CON, 12/12/2024, 9:53. [facility], CT, CT ANGIO HEAD AND NECK, 12/11/2024, 12:40. [facility], CT, CT HEAD/BRAIN WO CON, 12/11/2024, 12:40. FINDINGS: Image quality: Diagnostic. CSF spaces: Basal cisterns are patent. No extra-axial fluid collections. The ventricles are symmetric in size and shape. Brain: A broad right MCA infarction is again seen. Small areas of hyperdensity can be seen along the margins of this stroke, as on series 2 images 16 and 17. No intracranial bleeds or masses. There is cerebral volume loss for age, with resultant ventricular and sulcal prominence. There are periventricular and deep white matter chronic small vessel ischemic changes. There is intracranial internal carotid artery atherosclerosis. Skull and face: Calvarium and visualized facial bones appear intact, without suspicious lesions. Sinuses: Visualized sinuses and mastoids are clear. IMPRESSION: Right MCA territory infarction again seen. There is minimal hyperdensity along the margins of this stroke, which are consistent with early petechial hemorrhage. Dictated by: Kurt Atkinson M.D. on 12/13/2024 at 10:23 Approved by: Kurt Atkinson M.D. on 12/13/2024 at 10:25
--- NOTE | 2024-12-13 13:44 | SLP.IPNOTE ---
Treatment session attempted at about 13:40. Pt had friend visiting and politely requested to hold off treatment until her friend left. Plan to follow-up later in day as schedule allows.
--- NOTE | 2024-12-13 15:13 | OT.IP.TRT ---
Current Diagnoses Cerebral infarction, unspecified (12/11/24) Occupational Therapy Treatment Note M2 OT-IP Current Condition Start: 12/12/24 12:53 Freq: Status: Active Protocol: Document 12/12/24 12:53 CCC (Rec: 12/12/24 13:12 [facility] [id number]) Occupational Therapy Current Condition Current Condition Evaluation Date 12/12/24 Treatment Diagnosis Large subacute R CVA Diagnosis Onset Date 12/11/24 M3 OT- IP Subjective and Pain Start: 12/12/24 12:53 Freq: Status: Active Protocol: Document 12/13/24 15:40 CGR (Rec: 12/13/24 16:23 CGR [id number]) OT- Subjective Occupational Therapy Visit Type Type Treatment Note Visit Start Time 14:50 Visit Stop Time 15:13 Notes Pt finishing up with a visitor when OT entered. OT Pain Assessment Pain When Pain Assessed At Rest Pain Present Pain Present Denied Pain M4 OT- IP ADL's Start: 12/12/24 12:53 Freq: Status: Active Protocol: Document 12/13/24 15:40 CGR (Rec: 12/13/24 16:23 CGR [id number]) OT MCH-Myez-Fdodyth Comments OT Self-Feeding Comments not meal time OT ADL-Grooming General Evaluation Grooming Ability Standby Assistance Areas Needing Assistance Combing/Brushing Hair,Face Washing Comments OT Grooming Comments standing at sink OT ADL-Oral Care General Eval Oral Care Ability Minimal Assistance Areas of Assistance Brushing Teeth,Retrieving/Set- Up of Items Comments Oral Care Comments Standing at sink, pt had difficulty with getting tooth paste on the tooth brush. Pt asked where did the tooth brush head go and needed this creative services writer to instruct her on turning the tooth brush around . OT ADL-Dressing Comments OT Dressing Comments not performed OT ADL-Toileting General Evaluation Toileting Ability Moderate Assistance Areas Needing Assistance Manage Clothing Comments OT Toileting Comments pt needed assist with pulling down and pulling up pants. Pt needs vc to initiate the use of her L hand in ADLs. OT ADL-Bathing Comments OT Bathing Comments not performed M5 OT- IP IADL's Start: 12/12/24 12:53 Freq: Status: Active Protocol: Document 12/12/24 12:53 CCC (Rec: 12/12/24 13:12 [facility] [id number]) OT-Instrumental Activities of Daily Living Home Safety Awareness Awareness of Need for Assistance at Home Good Awareness Home Safety Comments Pt is aware that she will not be able to care for her self at this time. Medication Management Medication Management Comments Prior pt able to do but may benefit from assist due to decreased vision from CVA and macular deg. Money Management Money Management Comments Prior pt able to do but may benefit from assist due to decreased vision from CVA and macular deg. Meal Preparation Meal Preparation Comments Prior pt able to do but may benefit from assist due to decreased vision from CVA and macular deg. Authorization Manager Authorization Manager Comments Prior pt able to do but may benefit from assist due to decreased vision from CVA and macular deg. Driving Driving Comments Pt aware that she will not be able to drive. M6 OT- IP Functional Cognition Start: 12/12/24 12:53 Freq: Status: Active Protocol: Document 12/12/24 12:53 [facility] (Rec: 12/12/24 13:12 CCC [id number]) Cognitive Factors Limiting Selfcare Function Cognitive Ability Level of Alertness Alert Patient Orientation Name,Age,Birthday,Month,Date, Year,Day of Week,Place, Situation Attention Span Ability Capable of Focused Attention, Capable of Sustained Attention Ability to Follow Commands Able to Follow One Step Commands Cognitive Comments Cognitive Assessment Comments Pt able to follow commands, however needing cues for safety due to visual impairments on the left, neglect and for FWW use. Pt O x4 and motivated to get better. Pt would benefit from SLUMS. OT- Vision and Hearing OT- Vision Assessment Vision History Macular Degeneration Visual Acuity Glasses For Reading Visual Attentiveness WFL Occular Pursuits Impaired Horizontal Visual Richardson Impaired Visual Spacial Neglect Left Vision Assessment Comments Left eye decreased peripherally.Pt educated to turn her head to ashley left to be able to see. Pt eating food on the right side of the plate and needing assist to urn the plate to see. M7 OT- IP Mobility and Balance Start: 12/12/24 12:53 Freq: Status: Active Protocol: Document 12/13/24 15:40 CGR (Rec: 12/13/24 16:23 CGR [id number]) OT-Transfer Assessment Sit to and From Stand Sit to and from Stand Minimal Assistance Transfers Transfer Ability Minimal Assistance Technique Transfer Destination Chair,Toilet Transfer Technique Stand Step Pivot Devices Transfer Assistive Devices Straight Cane,Front Wheeled Walker Comments Mobility Comments Pt needs assist with using the walker. Pt pushes the walker too far forward and needs assist with catching the walker on things on her L. OT- Balance Assessment Sitting Balance and Reactions Static Sitting Balance Ability Good Dynamic Sitting Balance Ability Good M8 OT- IP Objective Assessments Start: 12/12/24 12:53 Freq: Status: Active Protocol: Document 12/12/24 12:53 CCC (Rec: 12/12/24 13:12 CCC [id number]) OT Gross Range of Motion Upper Extremity Range of Motion Assessment Within Functional Limits OT Strength Upper Extremity Strength Assessment Left Impaired Wrist 4- Hand 4- OT- Coordination Assessment Upper Extremity Finger to Nose Test Left UE Impaired Finger Tapping Test Left UE Impaired OT Sensation Assessment Comments Summary Comments Decreased for proprioception and kinesthesia. Pt ataxia with left arm and neglect as well. M9 OT- IP Assessment and Plan Start: 12/12/24 12:53 Freq: Status: Active Protocol: Document 12/13/24 15:40 CGR (Rec: 12/13/24 16:23 CGR [id number]) OT Summary Assessment and Plan Potential Rehabilitation Potential Good Analytic Complexity at Evaluation Moderate Summary OT Impairments Range of Motion,Strength, Balance,Coordination,Sensation ,Functional Mobility,Self- Feeding,Grooming,Dressing, Toileting,Bathing,Toilet Transfers,Shower Transfers, Activity Tolerance Progress Towards Goals Progressing Toward Goals,Slow Progress due to Medical Issues Assessment Summary Pt is progressing with therapy but is impacted by her L visual field cut and by possible L neglect, requiring VC to use her L hand to assist with tasks. Pt will benefit from continued therapy services, specifically acute rehab. Will continue to follow . Goals Self-Feeding Goal Independent Grooming Goal Independent Dressing Goal Independent Toileting Goal Independent Bathing Goal Standby Assistance Toilet Transfer Goal Independent Shower Transfer Goal Independent Days to Meet Goals 30 Frequency of Treatment Other frequency 5x/week Treatment Plan OT Treatment Plan ADL Training,Functional Mobility,Neuromuscular Re- education,Vision Retraining, Patient/Family Education, Discharge Planning Discharge Recommendations OT Discharge Recommendations Acute Rehab,SNF vs Acute Rehab Transportation Needs at Discharge Private Vehicle,Wheelchair/ Cabulance
--- NOTE | 2024-12-13 15:42 | CM.DPNOTE ---
DCP Cont Met w/patient and her friends Chantelle and Mary; reviewed therapy recommendation for IPR vs SNF. Patient would like a SNF referral to be sent to [facility], explains she would like all her friends to be able to readily visit her there. Referral sent to Floresita at [facility] and patient has been accepted for admission tomorrow 12/14. Patient updated. PASRR needed. Will patient discharge on ativan (?) Plan: Discharge to [facility] SNF 12/14. CM team will need to call Floresita in admissions 12/14 to discuss transport arrangement/time. LAZARO
[2024-12-13] MEDS: ASPIRIN EC 81 MG TABLET PO (17:38)
[2024-12-13] MEDS: ATORVASTATIN 20 MG TABLET 80 MG PO (20:08)
[2024-12-14 07:00] VITALS: BP 173/73; PULSE 68; RESP 18; TEMP 36.5; O2SAT 95
[2024-12-14 08:49] VITALS: BP 173/73; PULSE 68
[2024-12-14] MEDS: LOSARTAN 50 MG TABLET 100 MG PO (08:49)
[2024-12-14] MEDS: ASPIRIN EC 81 MG TABLET PO (09:00)
--- NOTE | 2024-12-14 10:29 | PC.NURSE ---
Addendum entered by James De La Torre R.N. 12/14/24 14:02: Report given to Ricardo Acuna RN, Transport here. IV SL d/c'd per protocol. Pt's belongings collected and given to friends who will meet her at [facility]. Pt sheila. activity and walk to w/c. Original Note: Pt is alert and oriented, expresses self well and voices her concerns appropriately.Pt requires cueing when up due to left eye field cut. Pt shows left facial droop. Pt walks well with walker and SBA. Needs cueing as she drifts to the left and bumps into left side of BR when up. Taking b'fast fairly well. Calls appropriately when needing the BR and isn't impulsive. Chair alarm engaged when in chair.
[2024-12-14 11:31] LABS: Cholesterol 204 mg/dL (140-199); HDL Cholesterol 41 mg/dL (40-60); LDL Cholesterol Calculated 147 mg/dL (<100); Triglycerides 82 mg/dL (35-150)
--- NOTE | 2024-12-14 11:44 | CM.DPNOTE ---
Patient is medically ready for d/c and approved at [facility]. Tranport set for 1330 today, updated patient, family, and RN. Faxed PASSR and med list to facility. No other needs. ARIAN Pollock
--- NOTE | 2024-12-20 12:21 | PM.DS.1 ---
History of Present Illness History of Present Illness Chief complaint: Per have friend patient might have had a stroke Narrative: Per H&P: This is an 84-year-old female with a history of macular degeneration, osteoarthritis and hypertension who presents with a subacute right parietal CVA. She says she has been diffusely weak, having to hold on to furniture to walk in her house, for 1 month. She went to the emergency department in [place] earlier this month and says she had a workup without any imaging and was started on lisinopril 5 mg daily. She has apparently not been treated for hypertension before that? Her PCP had retired and she has not yet established but is planning to see Kaybong Reese PA-C in December. Her friends noted that she had slurred speech, left arm weakness and drooping of the left face so when her retina specialist saw her today for a planned injection she was referred instead to the ED due to high blood pressure and these changes. On exam her speech is clear and her facial asymmetry is very subtle. Left hand function appears to be normal. Most profound is her left visual field loss to 90? and significant tunnel vision on the right side. She appears to have some left abida-neglect. The CT scan will be followed up with an MRI. She will receive an echocardiogram. She will be started on aspirin and Plavix. The CMP and CBC are normal. Discharge Providers Provider Date of admission: 12/11/24 14:24 Discharge Date: 12/14/24 Consults: 12/11/24 16:01 Consult to Discharge Planning Routine Comment: Consult to Occupational Therapy Evaluate & Treat Comment: Physician Instructions: Evaluate and treat Consult to Physical Therapy Evaluate & Treat Comment: Physician Instructions: Evaluate and Treat Consult to Speech Therapy Evaluate & Treat Comment: Physician Instructions: Evaluate and treat Discharge provider: Zeinab Campbell MD Summary Hospital Course Discharge Diagnosis: 1. 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 2. HTN 3. Macular degeneration 4. Osteoarthritis Hospital Course: Pt was admitted w/L arm weakness, facial droop and slurred speech. She was recently found to have an elevated blood pressure and was started on lisinopril in the outpatient setting. She was admitted and found to have a large subacute R MCA CVA. She was initiated on DAPT. However, repeat imaging showed petechiael hemorrhage consistent w/early hemorrhagic transformation and she was placed back on asa monotherapy. she was also placed on high intensity statin therapy. PT/OT evaluations were done and recommendations for Rehab were made. She was accepted to [facility]. She was d/c'd in stable condition. Of note, her lipids returned w/TC 207, LDL 147, TG 82, HDL 41. Would recommend f/u lipid panel and LFTs in 6 weeks. Status at Discharge Cognitive/behavioral status at discharge: at baseline, oriented Overall status at discharge: patient is progressing back to baseline Exam Vital Signs (past 8 hours): Oxygen Delivery Method Room Air Oxygen Flow Rate 0 Narrative Exam Narrative: GEN: Elderly female, Alert and oriented x 3, NAD HEENT:NC, Face symmetric CHEST: Respiratory excursions symmetric, CTAB CV: RRR, no M/R/G ABD: Soft, NT/ND, BT present in all 4 quadrants, no organomegaly or masses EXTR: warm, well perfused, no C/C/E NEURO: Alert and oriented x 3 Objective Labs 12/11/24 12:22 12/11/24 12:22 [facility] Medical History Hypertension Macular degeneration Social History household members: none Smoking Status: Former smoker Discharge Plan Discharge Plan Patient Disposition: SNF Transfer to: [facility] Under care of provider: Facility MD Provider Discharge Comment: 1) You were admitted with a new stroke 2) you will be taking daily aspirin now due to your stroke 3) You will be taking Lipitor (a cholesterol medication) to reduce risk of another stroke in the near future Discharge orders & Medications Prescriptions: New losartan 50 mg Tablet 100 mg PO DAILY Qty: 30 0RF atorvastatin 20 mg Tablet 80 mg PO BEDTIME Qty: 30 0RF aspirin 81 mg Tablet,Delayed Release (Dr/Ec) 81 mg PO DAILY Qty: 30 0RF Discontinued meloxicam 7.5 mg tablet 7.5 mg PO BID PRN (Reason: Pain, Mild) Rx Instructions: patient takes PRN not scheduled lisinopril 5 mg tablet 5 mg PO DAILY Discharge Health Status Multidrug resistant organism: No MDRO Diet/Activity/Treatments Diet: Diet as Tolerated Liquid consistency: Normal/Thin Food texture: Regular Activity: Per PT/OT Oxygen: N/A Visit Report/Discharge Packet Instructions: DI for Stroke-Ischemic Stand Alone Forms: Patient Portal/API
== END 2024-12-14 14:00 | DRG 64 ==
LOC: ED 13:57 → AC 14:26
PROVIDERS: Family Medicine; Admitting Provider Family Medicine; Emergency Provider Emergency Medicine; Referring Provider Emergency Medicine; Visit Provider Family Medicine
DX: I63.9 Cerebral infarction, unspecified (principal); I61.9 Nontraumatic intracerebral hemorrhage, unspecified; R47.81 Slurred speech; R29.810 Facial weakness; G83.24 Monoplegia of upper limb affecting left nondominant side; H35.30 Unspecified macular degeneration; I10 Essential (primary) hypertension; M19.90 Unspecified osteoarthritis, unspecified site; R29.703 NIHSS score 3; R29.706 NIHSS score 6; H53.47 Heteronymous bilateral field defects; R48.2 Apraxia; Z23 Encounter for immunization; Z87.891 Personal history of nicotine dependence
CPT/HCPCS: 36415; 70450; 70496; 70498; 70551; 80053; 80061; 85025; 85610; 85730; 90471; 90662; 92523; 93005; 93306; 96360; 97162; 97166; 97530; 97535; 99285; J2060; Q9967